=== PATIENT | female | born 1925 | race Caucasian/White ===

== ENCOUNTER 2016-05-02 17:45 | Emergency (ER) | payer MEDICARE, BC, MEDICAID ==
[~2016-05-02 17:45] MED LIST: APRESOLINE10 MG PO; ARCTIC RELIE113.4 GM TOP; ASPIRIN81 MG PO; ATORVASTATIN CA10 MG PO; BACTRIM 400-801 EACH PO; CALAN SR240 MG PO; CELEXA10 MG PO; LEVAQUIN250 MG PO; LEVOTHYROXINE75 MCG PO; MAVIK2 MG PO; NAMENDA5 MG PO; NORVASC5 MG PO; SENNA-S TABLET1 EACH PO; SINEMET 25-1001 TAB PO; SULFAMETHOXAZO1 EACH PO; TYLENOL WITH CO1 TAB PO; TYLENOL500 MG PO
[2016-05-02] MEDS ORDERED: TYLENOL325 MG PO (19:57)
[2016-05-02] MEDS ORDERED: DULCOLAX10 MG RECTAL (19:58)
[2016-05-02] MEDS ORDERED: FLEET ENEMA133 M1 RECTAL (20:01)
[2016-05-02] MEDS ORDERED: MILK OF MAGNESI30 ML PO (20:03)
[2016-05-02] MEDS ORDERED: ELIQUIS5 MG PO (20:05)
== END 2016-05-02 19:50 | disposition short-term general hospital (02) ==
LOC: ER 17:45
PROC: 0HQ1XZZ Repair Face Skin, External Approach (ICD-10-PCS; principal; 2016-05-02)
DX: S01.81XA Laceration without foreign body of other part of head, initial encounter (principal); Z87.440 Personal history of urinary (tract) infections; Z86.718 Personal history of other venous thrombosis and embolism; F41.9 Anxiety disorder, unspecified; I10 Essential (primary) hypertension; E78.00 Pure hypercholesterolemia, unspecified; G20 Parkinson's disease; F02.80 Dementia in other diseases classified elsewhere, unspecified severity, without behavioral disturbance, psychotic disturbance, mood disturbance, and anxiety; Z79.899 Other long term (current) drug therapy; Z88.8 Allergy status to other drugs, medicaments and biological substances; X58.XXXA Exposure to other specified factors, initial encounter; W05.0XXA Fall from non-moving wheelchair, initial encounter